=== PATIENT | female | born 2000 | race African-American/Black ===

== ENCOUNTER 2023-12-27 13:46 | Emergency (ER) | payer MEDICAID ==
[~2023-12-27] VITALS: Ht 160 cm; Wt 61.0 kg
[2023-12-27 13:52] VITALS: O2SAT 100
[2023-12-27] MEDS ORDERED: AMOX1TAB16 MT (15:08)
[2023-12-27] MEDS ORDERED: IBUP-2030 MT (15:08)
[2023-12-27] MEDS: KETOROLAC 30MG/ML VIAL IM ONE (15:15)
[2023-12-27] MEDS: ACETAMINOPHEN 325MG TABLET PO ONE (15:15)
[2023-12-27 15:47] VITALS: BP 126/70; PULSE 81; RESP 16; TEMP 98.7
== END 2023-12-27 15:48 | disposition home or self-care (01) ==
LOC: ER 14:01
DX: H66.91 Otitis media, unspecified, right ear (principal)
CPT/HCPCS: 99283; 81025; 96372; J1885